=== PATIENT | male | born 1955 | race Caucasian/White ===

== ENCOUNTER → 2017-08-26 15:17 | Outpatient (CLI) | payer SELFPAY | PROVIDERS: Visit Provider Nurse Practitioner Acute Care | DX: J44.1 Chronic obstructive pulmonary disease with (acute) exacerbation (principal) | CPT/HCPCS: 87070; 87205 ==

== ENCOUNTER → 2017-12-24 14:57 | Outpatient (CLI) | payer SELFPAY ==
--- NOTE | 2017-12-24 15:14 | RAD_ITS ---
STUDY: X-RAY CHEST REASON FOR EXAM: Male, 62 years old. Severe shortness of breath with history of COPD. TECHNIQUE: PA and lateral chest COMPARISON: Chest x-ray 11/06/2016. FINDINGS: Generalized pulmonary hyperlucency and hyperinflation with flattening of the hemidiaphragms and diffuse mild coarsening of the pulmonary interstitial markings in a pattern consistent with COPD/emphysema stable compared to prior imaging. The lungs are otherwise acutely clear. There is no infiltrate, effusion, pneumothorax or suspicious focal lesion. Normal cardiomediastinal silhouette, elyssa and pleural margins. No acute osseous or upper abdominal process. 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 Electronically Signed: Everett Solano, at 18:20 EDT Tel , Service support ,
== END ==
PROVIDERS: Family Provider Family Medicine; PCP Family Medicine; Visit Provider Nurse Practitioner Acute Care
DX: J44.1 Chronic obstructive pulmonary disease with (acute) exacerbation (principal)
CPT/HCPCS: 71046; 87070; 87077; 87186; 87205